=== PATIENT | male | born 1960 | race Caucasian/White ===

== ENCOUNTER → 2024-06-14 15:36 | Outpatient (REF) | payer BC, SELFPAY | LOC: HWRAD 15:36 | PROVIDERS: ATTENDING PHYSICIAN Family Medicine | DX: Z87.891 Personal history of nicotine dependence (principal) | CPT/HCPCS: 71271 ==

== ENCOUNTER 2025-02-11 06:24 | Day surgery (SDC) | payer BC, SELFPAY | END 2025-02-11 14:49 | disposition home or self-care (01) | LOC: GI 06:24 | PROVIDERS: ATTENDING PHYSICIAN Internal Medicine Gastroenterology; FAMILY PHYSICIAN Family Medicine | DX: Z12.11 Encounter for screening for malignant neoplasm of colon (principal); K64.8 Other hemorrhoids; K57.30 Diverticulosis of large intestine without perforation or abscess without bleeding; K63.5 Polyp of colon; K63.89 Other specified diseases of intestine; Z86.0100 Personal history of colon polyps, unspecified | CPT/HCPCS: 45385; 88305; 88341; 88342 ==

== ENCOUNTER → 2025-06-26 08:54 | Outpatient (REF) | payer MEDICARE, OTHER, SELFPAY | LOC: HWRAD 08:54 | PROVIDERS: ATTENDING PHYSICIAN Family Medicine | DX: Z87.891 Personal history of nicotine dependence (principal) | CPT/HCPCS: 71271 ==

== ENCOUNTER 2025-08-04 06:58 | Emergency (ER) | payer MEDICARE, BC, OTHER, SELFPAY ==
[2025-08-04 07:02] VITALS: BP 159/77
--- NOTE | 2025-08-04 07:35 | ED.GENMED ---
History of Present Illness
General
Chief Complaint: Back Pain
Source: patient and spouse
Exam Limitations: none
Time Seen by Provider: 08/04/25 07:04
Nursing documentation reviewed up to this point in time: agreed with
History of Present Illness
History of Present Illness:
The patient is a pleasant 65-year-old man who reports gradual onset of right lower back pain that started yesterday and has intensified and become severe. Patient reports that he may have overdone it with physical labor and additionally played
soccer with his grandchild which may have triggered it. He reports that the pain is located in his right buttock area and radiates down into his inner thigh and down towards the level of his right knee. He denies weakness and numbness of the legs.
He denies bowel and bladder incontinence. Reports the pain is so bad he cannot walk. He reports that he is more comfortable in certain positions and with movement the pain is triggered. He denies any specific history of back injury
Past History
Past History
ED Past Medical History: Other (Back pain, TBI, fractures)
ED Past Surgical History: Other ([place] teeth)
Social History
Tobacco: Non-smoker
Alcohol: Other
Drug: None
Personal:
Living: with family
Employment: Other
Family History
Family History: Other
Review of Systems
Review of Systems
Allergies reviewed?: Yes
All Other Systems: ROS reviewed and negative except as documented in HPI and ROS
Constitutional: Reports no symptoms
EENT: Reports no symptoms
Respiratory: Reports no symptoms
Cardiac: Reports no symptoms
ABD/GI: Reports no symptoms
: Reports no symptoms
Musculoskeletal: Reports muscle stiffness and back pain
Skin: Reports no symptoms
Neurological: Reports no symptoms
Endocrine: Reports no symptoms
Hematologic/Lymphatic: Reports no symptoms
Psychiatric: Reports no symptoms
Phy Exam
Physical Exam
Physical Exam:
Physical Exam
General: Patient appears uncomfortable but nontoxic
Neck: supple. no meningeal signs. normal psoterior pharynx
Heart: s1/s2 regular rate and rhythm, no murmur. equal radial and femoral pulses bilaterally. Strong pulses in right foot.
Lungs: no acute respiratory distress. clear bilaterally
Abdomen: Soft, nontender. No vertebral spine tenderness in thoracic or lumbar spine
Neuro: alert and oriented. no focal neurological deficits. No saddle anesthesia
Skin: no rash
Psychiatric: well kept. interactive and cooperative
Extremities: no edema. no calf tenderness. negative homans. good distal pulses
Course
Orders/Labs/Results
Orders:
Orders
08/04/25 07:33
HYDROmorphone [Dilaudid] 1 mg IV NOW STA
08/04/25 07:35
Ketorolac [Toradol] 30 mg IV NOW STA
08/04/25 07:36
Prednisone [Deltasone] 40 mg PO NOW STA
08/04/25 07:37
LS Spine Complete, 4 View [CR Lumbar Spine Comp Min 4 Vw*] Urgent
Comment:
Reason For Exam: R sided buttock pain radiating into right thigh
08/04/25 09:54
diazePAM [Valium Injection] 5 mg IV NOW STA
08/04/25 09:57
Urinalysis Reflex To Culture Urgent
Date Specimen was Collected: 08/04/25
Time Specimen was Collected: 09:52
Urine Microscopic Reflex Cult Urgent
Abnormal Lab Results
08/04/25
09:57
Urine Bacteria (Reflex) Few A
(Negative)
Urine Albumin (Reflex) 2+ A
(Neg - Trace)
Vital Signs
Initial and Last Documented VS:
Initial Vital Signs
Temp Pulse Resp BP Pulse Ox
97.6 F 49 18 159/77 96
08/04/25 07:02 08/04/25 07:02 08/04/25 07:02 08/04/25 07:02 08/04/25 07:02
Last Documented Vital Signs
Temp Pulse Resp BP Pulse Ox
97.6 F 52 16 159/77 99
08/04/25 07:02 08/04/25 11:46 08/04/25 11:46 08/04/25 07:02 08/04/25 11:46
MDM/Problems Addressed
Differential Diagnosis Includes:
Acute sciatica back pain, lumbar radiculopathy, muscle spasm
MDM/Problems Addressed:
Patient presents with acute right low back pain/buttock pain
Acute Exacerbation and/or Progression of Chronic Illness:
Patient is acutely hypertensive, likely due to severe pain
Acute Exacerbation and/or Progression of Chronic Illness: HTN
*Radiology
Radiology exam reviewed: preliminary read by ED provider (LS-spine x-ray reviewed by me. No acute fracture seen) and radiology read reviewed
*Pulse Oximetry
SaO2: 96
Oxygen Mode of Delivery: Room air
Patient hypoxic: no
*EKG
Interpreted by ED Provider?: NA
*Critical Care Note
Total Time (30-74mins, 75-104mins- exclusive of procedures): Not Applicable
Data Reviewed
Review of Other/Old Records Reveals: Radiology Studies (No vertebral compression fractures seen on chest x-ray of 2021)
Source: patient and spouse
Patient Management
Social determinants of health affecting care: Living situation and Strong social support
Update Note
Update Note:
Patient feels better with Dilaudid, Toradol and Valium, however, still uncomfortable. However, he is able to get up and walk around. Patient has no clinical sign of cauda equina. Pain is very related to changes in movement and very characteristic
of sciatica, therefore, kidney stone is less likely. I did check patient's urinalysis and it looks normal without any bladder infection
ED Attending Note
-
Portions of this chart may have been created with voice recognition software.� Occasional wrong word or��sound alike� substitutions may have occurred due to the inherent limitations of voice recognition software.
Discharge Plan
Departure
Patient Disposition: Home (Routine Discharge)
Date of Disposition: 08/04/25
Time of Disposition: 11:53
Patient with high blood pressure during this ER visit?: Yes
Condition: Good
Covid-19: Not Applicable
Discharge Problem:
Acute right-sided back pain with sciatica
Instructions: Sciatica (DC), BLOOD PRESSURE
Prescriptions:
New
prednisone 10 mg tablet
10 mg PO DAILY 7 Days Qty: 16 0RF
Rx Instructions:
Take 4 tablets on day 1
Take 3 tablets on day 2 and day 3
Take 2 tablets on day 4 and day 5
Take 1 tablet on day 6 and day 7
oxycodone 5 mg tablet
5 mg PO Q4H PRN (Reason: Pain) Qty: 12 0RF
No Action
aspirin 81 MG tablet,delayed release (DR/EC)
81 mg PO DAILY
fluoxetine 20 MG capsule
20 mg PO DAILY
rosuvastatin 10 MG tablet
10 mg PO DAILY
Vitamin D
1 tab PO DAILY
Referrals:
Dara Tinoco DO [Family Provider, Family Practice]
Activity Restrictions/Additional Instructions:
Take 600 mg of Advil/ibuprofen with food every 6-8 hours for pain. Additionally, if the pain is severe, please take oxycodone every 4 hours (this can be taken along with the Advil/ibuprofen)
Your next dose of prednisone will be tomorrow morning.
Please follow-up with your primary care doctor within 1 week
Interventions
Interventions:
*Risk Screen - Suicide Last Done: 08/04/25 07:02
*General Assessment Last Done: 08/04/25 07:02
*Neglect/Abuse Screening Last Done: 08/04/25 09:38
*ED- Fall Risk Assessment Last Done: 08/04/25 07:59
*ED COVID-19 Vaccine History Last Done: 08/04/25 08:00
*ED Influenza Vaccine History Last Done: 08/04/25 07:59
*Nursing Disposition Last Done: 08/04/25 12:24
ED-Musculoskeletal Assessment Last Done: 08/04/25 07:59
Discharge Date and Time
Discharge Date/Time: 08/04/25 12:27
Print Language: BRAZILIAN
[2025-08-04] MEDS: DELTASONE 40 MG PO (07:44)
[2025-08-04] MEDS: DILAUDID 1 MG IV (07:49)
[2025-08-04] MEDS: TORADOL 30 MG IV (07:49)
[2025-08-04 07:59] VITALS: BMI 30.6
[2025-08-04] MEDS: VALIUM INJECTION 5 MG IV (10:04)
[2025-08-04 10:11] LABS: Urine Character Clear (Clear)
[2025-08-04 10:22] LABS: Urine Squamous Cell 0-2 /LPF (Few)
[2025-08-04 10:23] LABS: Urine Red Blood Cell 0-2 /HPF (0-2); Urine White Cell 0-2 /HPF (0-5)
== END 2025-08-04 12:27 | disposition home or self-care (01) ==
LOC: EMR 06:58
PROVIDERS: EMERGENCY PHYSICIAN Emergency Medicine; FAMILY PHYSICIAN Family Medicine
DX: M54.41 Lumbago with sciatica, right side (principal); I10 Essential (primary) hypertension; Z87.820 Personal history of traumatic brain injury
CPT/HCPCS: 99284; 96374; 96375 ×2; 72110; 81003; 81015